=== PATIENT | male | born 1945 | race Two or more races ===

== ENCOUNTER 2018-10-26 13:24 | Outpatient (CLI) | payer OTHER ==
[2018-11-01] MEDS ORDERED: ATORVASTATIN CA40 MG PO (14:47)
[2018-11-01] MEDS ORDERED: AMLOD PO (14:48)
== END 2018-10-26 13:29 | disposition home or self-care (01) ==
LOC: EKG 13:24
DX: I10 Essential (primary) hypertension (principal)

== ENCOUNTER 2018-11-04 05:30 | Day surgery (SDC) | payer OTHER ==
[~2018-11-04 05:30] MED LIST: AMLOD PO; ATORVASTATIN CA40 MG PO
[2018-11-04] MEDS ORDERED: PERCOCET 5-3251 EACH PO (08:47)
[2018-11-04] MEDS ORDERED: RECTICARE30 GM TOP (08:47)
== END 2018-11-04 13:15 | disposition home or self-care (01) ==
LOC: CIR.AMB 05:30
DX: D12.9 Benign neoplasm of anus and anal canal (principal)